=== PATIENT | female | born 1945 | race Caucasian/White ===

== ENCOUNTER → 2018-03-18 | Outpatient (CLI) | payer MEDICARE, OTHER ==
[~2018-03-18] MED LIST: ADULT LOW DOSE81 MG PO; ANTIVERT25 MG PO; DEXAMETHASONE 44 M1 PO; LASIX 40 MG TAB40 M2 PO; LEVOTHYROXINE0.05 MG PO; NEURONTIN600 MG PO; NORVASC10 MG PO; OMEPRAZOLE20 M2 PO; SENNA LAX8.6 MG PO; TRAZODONE HCL50 MG PO; WELLBUTRIN XL300 MG PO; ZOCOR40 MG PO; ZYRTEC10 MG PO
== END ==
LOC: M.MRI 03-14 07:30
DX: M47.23 Other spondylosis with radiculopathy, cervicothoracic region (principal); M48.02 Spinal stenosis, cervical region; M25.78 Osteophyte, vertebrae